=== PATIENT | female | born 1955 | race Two or more races ===

== ENCOUNTER 2017-11-08 07:18 | Outpatient (CLI) | payer OTHER ==
[~2017-11-08 07:18] MED LIST: CARDIZEM60 MG; DIOVAN160 M1; SINGULAIR10 MG
== END 2017-11-08 07:21 | disposition home or self-care (01) ==
LOC: MAMO-SONO 07:18
DX: Z12.31 Encounter for screening mammogram for malignant neoplasm of breast (principal); Z87.898 Personal history of other specified conditions

== ENCOUNTER 2018-02-22 13:51 | Outpatient (CLI) | payer OTHER | END 2018-02-22 13:55 | disposition home or self-care (01) | LOC: SONOGRAMA 13:51 → MAMO-SONO 03-08 07:45 | DX: Z12.39 Encounter for other screening for malignant neoplasm of breast (principal) ==

== ENCOUNTER → 2018-02-22 | Outpatient (CLI) | payer OTHER | END | disposition home or self-care (01) | LOC: TOM 12:18 | DX: R31.0 Gross hematuria (principal) ==

== ENCOUNTER → 2018-12-17 | Outpatient (CLI) | payer OTHER | END | disposition home or self-care (01) | LOC: NUCLEAR 07:00 | DX: E05.00 Thyrotoxicosis with diffuse goiter without thyrotoxic crisis or storm (principal) | CPT/HCPCS: 78013; A9512 ==

== ENCOUNTER 2019-04-25 08:58 | Outpatient (CLI) | payer OTHER | END 2019-04-25 14:38 | disposition home or self-care (01) | LOC: MAMO-SONO 08:58 | DX: R10.84 Generalized abdominal pain (principal); E03.8 Other specified hypothyroidism; D64.89 Other specified anemias; Z80.41 Family history of malignant neoplasm of ovary; D63.1 Anemia in chronic kidney disease; E10.9 Type 1 diabetes mellitus without complications; M19.90 Unspecified osteoarthritis, unspecified site; M25.562 Pain in left knee; K63.5 Polyp of colon; Z12.31 Encounter for screening mammogram for malignant neoplasm of breast; Z87.898 Personal history of other specified conditions ==

== ENCOUNTER → 2019-06-10 | Outpatient (CLI) | payer OTHER | END | disposition home or self-care (01) | LOC: NUCLEAR 12-11 10:00 | DX: E05.90 Thyrotoxicosis, unspecified without thyrotoxic crisis or storm (principal) | CPT/HCPCS: 79005; A9517 ==

== ENCOUNTER → 2021-04-16 15:23 | Outpatient (CLI) | payer OTHER | END | disposition home or self-care (01) | LOC: RAD 15:23 | PROVIDERS: ATTEND Internal Medicine Pulmonary Disease | DX: J45.41 Moderate persistent asthma with (acute) exacerbation (principal) ==

== ENCOUNTER → 2021-04-23 09:04 | Outpatient (CLI) | payer OTHER | END | disposition home or self-care (01) | LOC: LAB 09:04 | PROVIDERS: ATTEND Internal Medicine Nephrology | DX: N39.0 Urinary tract infection, site not specified (principal); E11.22 Type 2 diabetes mellitus with diabetic chronic kidney disease; N18.2 Chronic kidney disease, stage 2 (mild) ==

== ENCOUNTER 2021-06-14 07:16 | Outpatient (CLI) | payer OTHER | END 2021-06-14 07:28 | disposition home or self-care (01) | LOC: RAD 07:16 | PROVIDERS: ATTEND Internal Medicine Rheumatology | DX: M17.5 Other unilateral secondary osteoarthritis of knee (principal); M16.7 Other unilateral secondary osteoarthritis of hip; M19.91 Primary osteoarthritis, unspecified site ==

== ENCOUNTER 2021-06-14 08:00 | Outpatient (CLI) | payer OTHER | END 2021-06-14 08:30 | disposition home or self-care (01) | LOC: PPH VACUNA 08:00 | DX: Z23 Encounter for immunization (principal) ==

== ENCOUNTER 2021-08-04 07:22 | Outpatient (CLI) | payer OTHER | END 2021-08-04 07:26 | disposition home or self-care (01) | LOC: MAMO-SONO 07:22 | PROVIDERS: ATTEND Specialist | DX: N60.11 Diffuse cystic mastopathy of right breast (principal); N60.12 Diffuse cystic mastopathy of left breast; Z12.31 Encounter for screening mammogram for malignant neoplasm of breast ==

== ENCOUNTER 2021-09-28 17:43 | Emergency (ER) | payer OTHER ==
[~2021-09-28] VITALS: Ht 154.9 cm; Wt 64.0 kg
[2021-09-28] MEDS ORDERED: ADVIL (18:30)
[2021-09-29] MEDS ORDERED: GRALISE600 MG PO (02:35)
[2021-09-29] MEDS ORDERED: ORPHENADRINE C100 MG PO (02:35)
== END 2021-09-29 03:05 | disposition home or self-care (01) ==
LOC: ER 17:43
DX: M54.59 Other low back pain (principal); R50.9 Fever, unspecified

== ENCOUNTER → 2021-10-07 | Outpatient (CLI) | payer OTHER ==
[~2021-10-07] MED LIST changes: +ADVIL; +GRALISE600 MG PO; +ORPHENADRINE C100 MG PO
== END | disposition home or self-care (01) ==
LOC: TOM 12:25
PROVIDERS: ATTEND General Practice
DX: R42 Dizziness and giddiness (principal); J45.50 Severe persistent asthma, uncomplicated

== ENCOUNTER 2021-12-21 09:54 | Inpatient (IN) | payer OTHER ==
[~2021-12-21] VITALS: Ht 154.9 cm; Wt 60.3 kg
[~2021-12-21 09:54] MED LIST changes: -CARDIZEM60 MG; +CARDIZEM60 MG PO
[2021-12-23] MEDS ORDERED: PEPCID AC20 MG PO (09:14)
[2021-12-23] MEDS ORDERED: GLIMEPIRIDE4 MG (09:14)
[2021-12-23] MEDS ORDERED: ULTRAM50 MG PO (09:14)
[2021-12-23] MEDS ORDERED: LEVOTHYROXINE25 MCG PO (09:15)
[2021-12-23] MEDS ORDERED: FOSAMAX70 MG PO (09:15)
[2021-12-31] MEDS ORDERED: ADVAIR 250/50 IH (08:48)
[2021-12-31] MEDS ORDERED: BENZONATATE200 M1 PO (08:48)
[2021-12-31] MEDS ORDERED: IPRAT-ALBUT 0.5-3 ML IH (08:48)
[2021-12-31] MEDS ORDERED: ULTRAM50 MG PO (08:48)
[2021-12-31] MEDS ORDERED: BUDESONIDE0.5 MG/2 M IH (08:48)
[2021-12-31] MEDS ORDERED: Septra Ds Tablet PO (08:48)
[2021-12-31] MEDS ORDERED: MUCINEX600 MG PO (08:48)
[2021-12-31] MEDS ORDERED: LORATADINE10 MG PO (08:48)
[2021-12-31] MEDS ORDERED: PREDNISONE10 MG PO (08:48)
[2021-12-31] MEDS ORDERED: INTEGRA PLUS C1 EACH PO (08:48)
[2021-12-31] MEDS ORDERED: XARELTO10 MG PO (08:48)
[2021-12-31] MEDS ORDERED: MONTELUKAST SOD10 MG PO (08:48)
[2021-12-31] MEDS ORDERED: CARAFATE1 GM PO (08:48)
== END 2022-01-02 23:27 | disposition home or self-care (01) | DRG 470 ==
LOC: O/R 12-27 05:41 → SURG 12-27 05:41
PROVIDERS: ADMIT Orthopaedic Surgery Sports Medicine; ATTEND Orthopaedic Surgery Sports Medicine
PROC: 0SRD0J9 Replacement of Left Knee Joint with Synthetic Substitute, Cemented, Open Approach (ICD-10-PCS; principal; 2021-12-27 07:00)
PROC: 30233N1 Transfusion of Nonautologous Red Blood Cells into Peripheral Vein, Percutaneous Approach (ICD-10-PCS; 2021-12-28)
DX: M17.12 Unilateral primary osteoarthritis, left knee (principal); J45.41 Moderate persistent asthma with (acute) exacerbation; R06.02 Shortness of breath; D64.9 Anemia, unspecified; Z79.4 Long term (current) use of insulin; I10 Essential (primary) hypertension; Z20.822 Contact with and (suspected) exposure to COVID-19; E11.40 Type 2 diabetes mellitus with diabetic neuropathy, unspecified

== ENCOUNTER 2021-12-23 08:08 | Outpatient (CLI) | payer OTHER ==
[2021-12-23] MEDS ORDERED: GLIMEPIRIDE4 MG (09:14)
[2021-12-23] MEDS ORDERED: ULTRAM50 MG PO (09:14)
[2021-12-23] MEDS ORDERED: PEPCID AC20 MG PO (09:14)
[2021-12-23] MEDS ORDERED: FOSAMAX70 MG PO (09:15)
[2021-12-23] MEDS ORDERED: LEVOTHYROXINE25 MCG PO (09:15)
== END 2021-12-23 08:25 | disposition home or self-care (01) ==
LOC: LAB 08:08
PROVIDERS: ATTEND General Practice
DX: Z12.11 Encounter for screening for malignant neoplasm of colon (principal); I13.0 Hypertensive heart and chronic kidney disease with heart failure and stage 1 through stage 4 chronic kidney disease, or unspecified chronic kidney disease; N18.2 Chronic kidney disease, stage 2 (mild); D63.1 Anemia in chronic kidney disease; E03.9 Hypothyroidism, unspecified; E11.69 Type 2 diabetes mellitus with other specified complication; K29.70 Gastritis, unspecified, without bleeding

== ENCOUNTER 2022-02-16 08:43 | Outpatient (CLI) | payer OTHER ==
[~2022-02-16 08:43] MED LIST changes: +ADVAIR 250/50 IH; +BENZONATATE200 M1 PO; +BUDESONIDE0.5 MG/2 M IH; +CARAFATE1 GM PO; +FOSAMAX70 MG PO; +GLIMEPIRIDE4 MG; +INTEGRA PLUS C1 EACH PO; +IPRAT-ALBUT 0.5-3 ML IH; +LEVOTHYROXINE25 MCG PO; +LORATADINE10 MG PO; +MONTELUKAST SOD10 MG PO; +MUCINEX600 MG PO; +PEPCID AC20 MG PO; +PREDNISONE10 MG PO; +Septra Ds Tablet PO; +ULTRAM50 MG PO; +XARELTO10 MG PO
== END 2022-02-16 08:53 | disposition home or self-care (01) ==
LOC: LAB 08:43
PROVIDERS: ATTEND Internal Medicine Pulmonary Disease
DX: D64.9 Anemia, unspecified (principal); R10.9 Unspecified abdominal pain; E03.9 Hypothyroidism, unspecified; E78.5 Hyperlipidemia, unspecified; E55.9 Vitamin D deficiency, unspecified; E11.22 Type 2 diabetes mellitus with diabetic chronic kidney disease; N18.31 Chronic kidney disease, stage 3a; N39.0 Urinary tract infection, site not specified; Z20.828 Contact with and (suspected) exposure to other viral communicable diseases; J10.00 Influenza due to other identified influenza virus with unspecified type of pneumonia

== ENCOUNTER 2022-07-27 07:34 | Outpatient (CLI) | payer OTHER | END 2022-07-27 10:14 | disposition home or self-care (01) | LOC: TOM 07:34 | PROVIDERS: ATTEND Anesthesiology | DX: G43.711 Chronic migraine without aura, intractable, with status migrainosus (principal) ==

== ENCOUNTER 2022-07-27 08:03 | Outpatient (CLI) | payer OTHER | END 2022-07-27 08:05 | disposition home or self-care (01) | LOC: NUCLEAR 08:03 | DX: G43.711 Chronic migraine without aura, intractable, with status migrainosus (principal) ==

== ENCOUNTER 2022-08-08 07:50 | Outpatient (CLI) | payer OTHER | END 2022-08-08 08:09 | disposition home or self-care (01) | LOC: MAMO-SONO 07:50 | PROVIDERS: ATTEND Internal Medicine Hematology & Oncology | DX: Z12.31 Encounter for screening mammogram for malignant neoplasm of breast (principal); N63.0 Unspecified lump in unspecified breast; N64.4 Mastodynia; E04.2 Nontoxic multinodular goiter ==

== ENCOUNTER 2023-01-09 07:36 | Outpatient (CLI) | payer OTHER | END 2023-01-09 07:40 | disposition home or self-care (01) | LOC: SONOGRAMA 07:36 | PROVIDERS: ATTEND Specialist | DX: R10.2 Pelvic and perineal pain (principal) ==

== ENCOUNTER 2023-03-10 06:45 | Outpatient (CLI) | payer OTHER | END 2023-03-10 06:46 | disposition home or self-care (01) | LOC: LAB 06:45 | PROVIDERS: ATTEND Psychologist Clinical | DX: Z12.11 Encounter for screening for malignant neoplasm of colon (principal) ==

== ENCOUNTER 2023-04-06 07:18 | Outpatient (CLI) | payer OTHER | END 2023-04-06 07:19 | disposition home or self-care (01) | LOC: NUCLEAR 07:18 | PROVIDERS: ATTEND Internal Medicine Gastroenterology | DX: K31.84 Gastroparesis (principal) | CPT/HCPCS: 78264; A9541 ==

== ENCOUNTER 2023-05-04 07:23 | Outpatient (CLI) | payer OTHER | END 2023-05-04 07:24 | disposition home or self-care (01) | LOC: LAB 07:23 | DX: E11.65 Type 2 diabetes mellitus with hyperglycemia (principal); E78.2 Mixed hyperlipidemia; I10 Essential (primary) hypertension; E03.8 Other specified hypothyroidism; E16.2 Hypoglycemia, unspecified ==

== ENCOUNTER → 2023-07-31 10:58 | Outpatient (CLI) | payer OTHER | END | disposition home or self-care (01) | LOC: NUCLEAR 07-18 13:00 | PROVIDERS: ATTEND Internal Medicine Rheumatology | DX: M81.0 Age-related osteoporosis without current pathological fracture (principal) ==

== ENCOUNTER 2023-09-22 09:20 | Outpatient (CLI) | payer OTHER | END 2023-09-22 09:26 | disposition home or self-care (01) | LOC: LAB 09:20 | PROVIDERS: ATTEND Internal Medicine Cardiovascular Disease | DX: N39.0 Urinary tract infection, site not specified (principal) ==

== ENCOUNTER 2023-09-22 11:29 | Outpatient (CLI) | payer OTHER | END 2023-09-22 11:38 | disposition home or self-care (01) | LOC: MAMO-SONO 11:29 | PROVIDERS: ATTEND Internal Medicine Cardiovascular Disease | DX: N64.4 Mastodynia (principal); Z12.31 Encounter for screening mammogram for malignant neoplasm of breast ==

== ENCOUNTER 2023-12-14 08:01 | Outpatient (CLI) | payer OTHER | END 2023-12-14 08:06 | disposition home or self-care (01) | LOC: SONOGRAMA 08:01 | PROVIDERS: ATTEND Orthopaedic Surgery Sports Medicine | DX: M25.511 Pain in right shoulder (principal) ==

== ENCOUNTER 2024-08-12 12:34 | Outpatient (CLI) | payer OTHER | END 2024-08-12 12:41 | disposition home or self-care (01) | LOC: RAD 12:34 | PROVIDERS: ATTEND Internal Medicine Pulmonary Disease | DX: J45.41 Moderate persistent asthma with (acute) exacerbation (principal); J20.9 Acute bronchitis, unspecified ==

== ENCOUNTER 2024-09-24 11:41 | Outpatient (CLI) | payer OTHER | END 2024-09-24 11:55 | disposition home or self-care (01) | LOC: MAMO-SONO 11:41 | PROVIDERS: ATTEND Internal Medicine Cardiovascular Disease | DX: C56.9 Malignant neoplasm of unspecified ovary (principal); N60.11 Diffuse cystic mastopathy of right breast; N60.12 Diffuse cystic mastopathy of left breast; Z12.31 Encounter for screening mammogram for malignant neoplasm of breast ==

== ENCOUNTER 2025-07-21 07:48 | Outpatient (CLI) | payer OTHER | END 2025-07-21 07:51 | disposition home or self-care (01) | LOC: RAD 07:48 | PROVIDERS: ATTEND Internal Medicine Cardiovascular Disease | DX: M19.90 Unspecified osteoarthritis, unspecified site (principal) ==